=== PATIENT | female | born 1975 | race Caucasian/White ===

== ENCOUNTER 2017-07-01 14:05 | Emergency (ER) | payer SELFPAY ==
[2017-07-01] MEDS ORDERED: NA CHLORIDE 0.9% 1,000 ML ONE (15:45)
[2017-07-01] MEDS ORDERED: ACETAMINOPHEN 500 MG TAB ONE (15:45)
[2017-07-01] MEDS ORDERED: METOCLOPRAMIDE 10 MG/2mL INJ ONE (15:45)
[2017-07-01 15:55] LABS: Absolute Lymphocytes (CBC) 3.3 K/uL (0.7-4.9); Absolute Monocytes 1.3 K/uL (0.1-1.3); Absolute Neutrophil 12.9 K/uL (1.8-8.0); Basophils % 0.7 % (0-1.3); Eosinophils % 0.1 % (0-4.4); Lymphocytes % 18.8 % (15.3-44.8); MCH 32.5 pg (27.0-35.0); MCV 98.3 fL (80-100); MPV 11.2 fL (7.6-11.3); Monocytes % 7.4 % (3.3-12.3); RBC Red Blood Cell Count 4.98 M/uL (3.86-4.86)
[2017-07-01 16:05] LABS: Bicarbonate 30 mEq/L (21-31); Glucose Level 129 mg/dL (65-120); Lipase 20 U/L (22-51); Potassium 3.2 mEq/L (3.6-5.0); Sodium Level 136 mEq/L (135-145)
[2017-07-01 16:11] LABS: ALT/SGPT 31 IU/L (10-60); AST/SGOT 25 IU/L (10-42); Albumin 4.5 g/dL (3.2-5.5); Alkaline Phosphatase 90 IU/L (42-121); BUN Blood Urea Nitrogen 13 mg/dL (6-20); Bilirubin Direct 0.1 mg/dL (0-0.2); Bilirubin Total 0.6 mg/dL (0.3-1.2); Protein, Total 8.5 g/dL (6.0-8.3)
--- NOTE | 2017-07-01 17:37 | ER ---
Nurse's Notes [facility] Name: Pamella Farrar Age: 42 yrs Sex: Female : 1975 Arrival Date: 07/01/2017 Time: 14:09 Bed 24 Private MD: Diagnosis: Acute Gastroenteritis Presentation: 07/01 14:19 Presenting complaint: Patient states: vomiting and back pain that began last night. Pt aa5 states "last time I felt like this my kidneys shut down". Transition of care: patient was not received from another setting of care. Onset of symptoms was June 2017. Initial Sepsis Screen: Does the patient meet any 2 criteria? No. Patient's initial sepsis screen is negative. Does the patient have a suspected source of infection? No. Patient's initial sepsis screen is negative. Care prior to arrival: None. 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 - Social history:: Smoking status: Patient uses tobacco products, smokes one-half pack cigarettes per day. Screenin:15 Abuse screen: Denies threats or abuse. Denies injuries from another. Nutritional kr2 screening: No deficits noted. Tuberculosis screening: No symptoms or risk factors identified. Fall Risk None identified. Assessment: 15:10 General: Appears in no apparent distress. uncomfortable, well groomed, well developed, kr2 well nourished, Behavior is cooperative, anxious. Pain: Complains of pain in epigastric area, right upper quadrant and left upper quadrant Pain does not radiate. Pain currently is 9 out of 10 on a pain scale. Quality of pain is described as sharp, tender, Is continuous, Alleviated by rest, Aggravated by eating. Neuro: Level of Consciousness is awake, alert, obeys commands, Oriented to person, place, time, situation, Appropriate for age. Cardiovascular: Capillary refill < 3 seconds in bilateral fingers Patient's skin is warm and dry. Respiratory: Airway is patent Respiratory effort is even, unlabored, Respiratory pattern is regular, symmetrical. GI: Abdomen is flat, non-distended, Bowel sounds present X 4 quads. Abd is soft X 4 quads Abdomen is tender to palpation in epigastric area, right upper quadrant and left upper quadrant. GI: Reports nausea, vomiting. : No signs and/or symptoms were reported regarding the genitourinary system. Denies burning with urination. EENT: Nares are clear bilaterally Oral mucosa is moist. Derm: Skin is intact, is healthy with good turgor, Skin is pink, warm \\T\\ dry. Musculoskeletal: Circulation, motion, and sensation intact. 16:15 Reassessment: Patient appears in no apparent distress at this time. Patient and/or kr2 family updated on plan of care and expected duration. Pain level reassessed. Patient is alert, oriented x 3, equal unlabored respirations, skin warm/dry/pink. 18:13 Reassessment: Patient appears in no apparent distress at this time. Patient and/or kr2 family updated on plan of care and expected duration. Pain level reassessed. Patient is alert, oriented x 3, equal unlabored respirations, skin warm/dry/pink. Patient states symptoms have improved. Vital Signs: 14:21 BP 169 / 96; Pulse 74; Resp 16 S; Temp 99.2(TE); Pulse Ox 97% on R/A; Height 5 ft. 5 aa5 in. (165.10 cm) (R); Pain 7/10; 15:42 Weight 70.31 kg; Height 5 ft. 5 in. (165.10 cm); Pain 8/10; kr2 16:00 BP 144 / 90; Pulse 70; Resp 16; Pulse Ox 99% on R/A; kr2 17:00 BP 146 / 80; Pulse 75; Resp 16; Pulse Ox 99% on R/A; kr2 18:00 BP 138 / 74; Pulse 70; Resp 16; Pulse Ox 99% on R/A; kr2 15:42 Body Mass Index 25.79 (70.31 kg, 165.10 cm) kr2 ED Course: 14:09 Patient arrived in ED. sb2 14:20 Triage completed. ch 14:20 Arm band placed on. ch 15:08 [facility] jr8 15:08 Yonathan Arteaga MD is Attending Physician. jr8 15:10 Patient has correct armband on for positive identification. Bed in low position. Call kr2 light in reach. Side rails up X2. Adult w/ patient. Pulse ox on. NIBP on. Door closed. Warm blanket given. Head of bed elevated. 15:30 Inserted saline lock: 20 gauge in right antecubital area, using aseptic technique. kr2 Blood collected. 15:32 Shannon Hollis, RN is Primary Nurse. kr2 18:12 No provider procedures requiring assistance completed. IV discontinued, intact, kr2 bleeding controlled, No redness/swelling at site. Pressure dressing applied. Administered Medications: 15:54 Drug: NS 0.9% (20 ml/kg) 20 ml/kg Route: IV; Rate: 1 bolus; Site: right antecubital; kr2 17:30 Follow up: Response: No adverse reaction; IV Status: Completed infusion kr2 15:54 Drug: Reglan 10 mg Route: IVP; Site: right antecubital; kr2 16:17 Follow up: Response: No adverse reaction kr2 16:17 Drug: Tylenol 1000 mg Route: PO; kr2 18:03 Follow up: Response: No adverse reaction kr2 18:03 Follow up: Response: Pain is decreased kr2 Outcome: 17:37 Discharge ordered by . jr8 18:13 Discharged to home ambulatory, with family. kr2 18:13 Condition: good 18:13 Discharge instructions given to patient, family, Instructed on discharge instructions, follow up and referral plans. medication usage, Demonstrated understanding of instructions, follow-up care, medications, Prescriptions given X 1. 18:18 Patient left the ED. kr2 Signatures: Brittney Farr RN RN Anh Moon RN RN aa5 Roshan Elaine PA PA jr8 Shannon Hollis, RN RN kr2 Vicky Munoz2 Corrections: (The following items were deleted from the chart) : 14:19 Presenting complaint: Patient states: vomiting and back pain that began last aa5 night. Pt states "last time I felt like this my kidneys shut down" 14:23 14:19 Transition of care: patient was not received from another setting of care. [facility] 14:23 14:19 Onset of symptoms was June 2017 [facility] 14:23 14:19 Initial Sepsis Screen: Does the patient meet any 2 criteria? No. Patient's aa5 initial sepsis screen is negative. Does the patient have a suspected source of infection? No. Patient's initial sepsis screen is negative. 14:19 Care prior to arrival: None. [facility] 14:19 Method Of Arrival: Ambulatory [facility] 14:19 Acuity: EVER 3 [facility] 14: 14:21 BP 169 / 96; Pulse 74bpm; Resp 16bpm; Spontaneous; Pulse Ox 97% RA; Temp 99.2F aa5 Temporal; Height 5 ft. 5 in. Reported; Pain 7/10; 18:15 16:15 Patient has correct armband on for positive identification. Bed in low position. kr2 Call light in reach. Side rails up X2. Adult w/ patient. kr2 18:15 16:15 Pulse ox on. NIBP on. kr2 kr2 18:15 16:15 Door closed. Warm blanket given. Head of bed elevated. kr2 kr2 18:15 16:15 Inserted saline lock: 20 gauge in right antecubital area, using aseptic kr2 technique. Blood collected. kr2
--- NOTE | 2017-07-01 17:37 | EDPHYS ---
Physician Documentation [facility] Name: Pamella Farrar Age: 42 yrs Sex: Female : 1975 Arrival Date: 07/01/2017 Time: 14:09 Bed 24 Private MD: ED Physician Yonathan Arteaga HPI: 07/01 17:35 This 42 yrs old Female presents to ER via Ambulatory with complaints of jr8 Vomiting. 17:35 The patient presents to the emergency department with nausea, vomiting, diarrhea. jr8 Onset: The symptoms/episode began/occurred acutely, yesterday. Possible causes: unknown. The symptoms are aggravated by food , The symptoms are alleviated by nothing. Associated signs and symptoms: The patient has no apparent associated signs or symptoms. Severity of symptoms: At their worst the symptoms were moderate in the emergency department the symptoms are unchanged. The patient has not experienced similar symptoms in the past. The patient has not recently seen a physician. 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 - Social history:: Smoking status: Patient uses tobacco products, smokes one-half pack cigarettes per day. ROS: 17:35 Eyes: Negative for injury, pain, redness, and discharge, ENT: Negative for injury, jr8 pain, and discharge, Neck: Negative for injury, pain, and swelling, Cardiovascular: Negative for chest pain, palpitations, and edema, Respiratory: Negative for shortness of breath, cough, wheezing, and pleuritic chest pain, Back: Negative for injury and pain, MS/Extremity: Negative for injury and deformity, Skin: Negative for injury, rash, and discoloration, Neuro: Negative for headache, weakness, numbness, tingling, and seizure. 17:35 Abdomen/GI: Positive for nausea, vomiting, and diarrhea, Negative for abdominal pain, abdominal distension, anorexia, dysphagia, hematemesis, black/tarry stool, rectal pain, rectal bleeding, bowel incontinence, flatulence. Exam: 17:35 Eyes: Pupils equal round and reactive to light, extra-ocular motions intact. Lids and jr8 lashes normal. Conjunctiva and sclera are non-icteric and not injected. Cornea within normal limits. Periorbital areas with no swelling, redness, or edema. ENT: Nares patent. No nasal discharge, no septal abnormalities noted. Tympanic membranes are normal and external auditory canals are clear. Oropharynx with no redness, swelling, or masses, exudates, or evidence of obstruction, uvula midline. Mucous membranes moist. Neck: Trachea midline, no thyromegaly or masses palpated, and no cervical lymphadenopathy. Supple, full range of motion without nuchal rigidity, or vertebral point tenderness. No Meningismus. Cardiovascular: Regular rate and rhythm with a normal S1 and S2. No gallops, murmurs, or rubs. Normal PMI, no JVD. No pulse deficits. Respiratory: Lungs have equal breath sounds bilaterally, clear to auscultation and percussion. No rales, rhonchi or wheezes noted. No increased work of breathing, no retractions or nasal flaring. Abdomen/GI: Soft, non-tender, with normal bowel sounds. No distension or tympany. No guarding or rebound. No evidence of tenderness throughout. Back: No spinal tenderness. No costovertebral tenderness. Full range of motion. Skin: Warm, dry with normal turgor. Normal color with no rashes, no lesions, and no evidence of cellulitis. MS/ Extremity: Pulses equal, no cyanosis. Neurovascular intact. Full, normal range of motion. Neuro: Awake and alert, GCS 15, oriented to person, place, time, and situation. Cranial nerves II-XII grossly intact. Motor strength 5/5 in all extremities. Sensory grossly intact. Cerebellar exam normal. Normal gait. Vital Signs: 14:21 BP 169 / 96; Pulse 74; Resp 16 S; Temp 99.2(TE); Pulse Ox 97% on R/A; Height 5 ft. 5 aa5 in. (165.10 cm) (R); Pain 7/10; 15:42 Weight 70.31 kg; Height 5 ft. 5 in. (165.10 cm); Pain 8/10; kr2 16:00 BP 144 / 90; Pulse 70; Resp 16; Pulse Ox 99% on R/A; kr2 17:00 BP 146 / 80; Pulse 75; Resp 16; Pulse Ox 99% on R/A; kr2 18:00 BP 138 / 74; Pulse 70; Resp 16; Pulse Ox 99% on R/A; kr2 15:42 Body Mass Index 25.79 (70.31 kg, 165.10 cm) kr2 MDM: 15:08 Patient medically screened. jr8 17:35 Data reviewed: vital signs, nurses notes, lab test result(s), and as a result, I will jr8 discharge patient. Data interpreted: Pulse oximetry: on room air is 97 %. Interpretation: normal. Counseling: I had a detailed discussion with the patient and/or guardian regarding: the historical points, exam findings, and any diagnostic results supporting the discharge/admit diagnosis, lab results, the need for outpatient follow up, a family practitioner, to return to the emergency department if symptoms worsen or persist or if there are any questions or concerns that arise at home. Response to treatment: the patient's symptoms have markedly improved after treatment, patient is well hydrated. Special discussion: Based on the patient's Hx, exam, and Dx evaluation, there is no indication for emergent surgery or inpatient Tx. It is understood by the patient/guardian that if the Sx's persist or worsen they need to return immediately for re-evaluation. ED course: Patient still without abdominal pain upon reexamination. Will send home with nausea medicine. To follow up with PCP. If worse to come back . 07/01 15:15 Order name: Basic Metabolic Panel; Complete Time: 16:07/01 15:15 Order name: CBC with Diff; Complete Time: 16:07/01 15:15 Order name: Creatinine for Radiology; Complete Time: 16:07/01 15:15 Order name: Hepatic Function; Complete Time: 16:33 07/01 15:15 Order name: Lipase; Complete Time: 16:33 07/01 15:31 Order name: Flu; Complete Time: 17:06 07/01 15:15 Order name: IV Saline Lock; Complete Time: 15:41 07/01 15:15 Order name: Labs collected and sent; Complete Time: 15:41 jr Administered Medications: 15:54 Drug: NS 0.9% (20 ml/kg) 20 ml/kg Route: IV; Rate: 1 bolus; Site: right antecubital; kr2 17:30 Follow up: Response: No adverse reaction; IV Status: Completed infusion kr2 15:54 Drug: Reglan 10 mg Route: IVP; Site: right antecubital; kr2 16:17 Follow up: Response: No adverse reaction kr2 16:17 Drug: Tylenol 1000 mg Route: PO; kr2 18:03 Follow up: Response: No adverse reaction kr2 18:03 Follow up: Response: Pain is decreased kr2 Disposition: 22:34 Co-signature as Attending Physician, Yonathan Arteaga MD I agree with the assessment and kdr plan of care. Disposition: 07/01/17 17:37 Discharged to Home. Impression: Acute Gastroenteritis. - Condition is Stable. - Discharge Instructions: Dehydration, Adult, Viral Gastroenteritis. - Prescriptions for Reglan 10 mg Oral Tablet - take 1 tablet by ORAL route every 6 hours . take 30 minutes before meals and at bedtime; 20 tablet. - Medication Reconciliation Form, Thank You Letter, Antibiotic Education, Prescription Opioid Use form. - Follow up: Private Physician; When: 1 - 2 days; Reason: Recheck today's complaints, Continuance of care, Re-evaluation by your physician. - Problem is new. - Symptoms have improved. Signatures: Dispatcher [employer] EDBrittney Salinas RN RN Yonathan Arteaga MD MD [facility] Roshan Elaine PA PA jr8 Shannon Hollis RN RN kr2 Corrections: (The following items were deleted from the chart) 18:16 15:15 Urine Dipstick-Ancillary ordered. jr8 kr2 18:18 17:37 07/01/2017 17:37 Discharged to Home. Impression: Acute Gastroenteritis. Condition kr2 is Stable. Forms are Medication Reconciliation Form, Thank You Letter, Antibiotic Education, Prescription Opioid Use. Follow up: Private Physician; When: 1 - 2 days; Reason: Recheck today's complaints, Continuance of care, Re-evaluation by your physician. Problem is new. Symptoms have improved. jr8
[2017-07-01 18:31] VITALS: TEMP 99.2
[2017-07-01 18:33] VITALS: O2SAT 99
[2017-07-01 18:36] VITALS: BP 138/74
== END 2017-07-01 18:18 | disposition home or self-care (01) ==
LOC: ER 14:05
DX: K52.9 Noninfective gastroenteritis and colitis, unspecified (principal); I10 Essential (primary) hypertension; F17.210 Nicotine dependence, cigarettes, uncomplicated
CPT/HCPCS: 36415; 80048; 80076; 83690; 85025; 87804; 96361; 96374; 99284; J2765; J7030

== ENCOUNTER 2017-08-25 07:40 | Emergency (ER) | payer SELFPAY ==
[2017-08-25] MEDS ORDERED: MORPHINE 4 MG/ML SYR ONE (08:28)
[2017-08-25] MEDS ORDERED: NA CHLORIDE 0.9% 1,000 ML ONE (08:28)
[2017-08-25] MEDS ORDERED: DIPHENHYDRAMINE 50 MG/ML VIAL ONE (08:28)
[2017-08-25] MEDS ORDERED: METOCLOPRAMIDE 10 MG/2mL INJ ONE (08:28)
[2017-08-25 08:59] LABS: Absolute Lymphocytes (CBC) 2.1 K/uL (0.7-4.9); Absolute Monocytes 0.6 K/uL (0.1-1.3); Absolute Neutrophil 9.4 K/uL (1.8-8.0); Basophils % 0.3 % (0-1.3); Eosinophils % 0.2 % (0-4.4); Hematocrit 43.5 % (36.0-45.0); Lymphocytes % 17.2 % (15.3-44.8); MCH 32.4 pg (27.0-35.0); MCV 95.5 fL (80-100); MPV 11.8 fL (7.6-11.3); Monocytes % 5.1 % (3.3-12.3); RBC Red Blood Cell Count 4.55 M/uL (3.86-4.86)
[2017-08-25 09:11] LABS: Urine Bacteria <20 /HPF (<20); Urine Culture Reflex Order NOT NEEDED; Urine RBC <5 /HPF (NONE SEEN)
[2017-08-25 09:12] LABS: Urine Blood TRACE (NEG); Urine Glucose NEGATIVE (NEG); Urine Protein 1+ (NEG); Urine Specific Gravity >1.030 (1.005-1.030)
[2017-08-25 09:20] LABS: ALT/SGPT 30 U/L (12-78); AST/SGOT 24 U/L (15-37); Albumin 4.5 g/dL (3.4-5.0); Alkaline Phosphatase 103 U/L (45-117); Amylase Level 38 U/L (25-115); BUN Blood Urea Nitrogen 9 mg/dL (7-18); Bicarbonate 26 mmol/L (21-32); Bilirubin Direct 0.2 mg/dL (0-0.2); Bilirubin Total 0.8 mg/dL (0.2-1.0); Glucose Level 130 mg/dL (74-106); Lipase 96 U/L (73-393); Potassium 3.7 mmol/L (3.5-5.1); Protein, Total 9.2 g/dL (6.4-8.2); Sodium Level 132 mmol/L (136-145)
--- NOTE | 2017-08-25 10:11 | RAD REPORT ---
EXAM DESCRIPTION: CT - Abdomen Pelvis W Contrast - 08/25/2017 9:55 am CLINICAL HISTORY: Abdominal pain/vomiting. COMPARISON: none. TECHNIQUE: Computed axial tomography of the abdomen pelvis was obtained. 100 cc Isovue-300 was admin istered intravenously. Oral contrast was not requested which limits evaluation of bowel. All CT scans are performed using dose optimization technique as appropriate and may include automated exposure control or mA/KV adjustment according to patient size. FINDINGS: The gallbladder has been removed. Mild prominence of the biliary tree is present. The liver, spleen, pancreas, adrenal and kidneys appear unremarkable. There is no evidence of diverticulitis. The appendix is normal. IMPRESSION: Mild dilatation of the biliary tree. Most likely this is physiologic in this patient sta tus post cholecystectomy. However, this should be correlated clinically and with appropriate lab valu es.
--- NOTE | 2017-08-25 11:03 | EDPHYS ---
Physician Documentation [facility] Name: Pamella Farrar Age: 42 yrs Sex: Female : 1975 Arrival Date: 08/25/2017 Time: 07:45 Bed 16 Private MD: None, None ED Physician David Knapp HPI: 08/25 07:55 This 42 yrs old Female presents to ER via Ambulatory with complaints of jmm Fever, Vomiting. 07:55 The patient presents to the emergency department with nausea, vomiting, abdominal pain, jmm of the right upper quadrant and left upper quadrant. Onset: The symptoms/episode began/occurred gradually, 2 day(s) ago. Possible causes: sick contacts, by a significant other, . Associated signs and symptoms: Pertinent positives: fever. This is a 42 year old female with a history of asthma, DM, that presents to the ED with 2 week of sinus congestion with fever beginning 2 days ago along with abdominal pain and multiple episodes of vomiting. The frequency increased this past evening. Patient states her gallbladder has been removed. The states he had similar symptoms. . Historical: - Allergies: 08:08 meperidine HCl; jl7 - Home Meds: 08:08 lisinopril 20 mg Oral tab 1 tab once daily [Active]; Metformin Oral [Active]; jl7 - PMHx: 08:08 Asthma; Hypertension; Diabetes - NIDDM; jl7 - PSHx: 08:08 Cholecystectomy; Tubal ligation; Small Bowel resection; jl7 - Immunization history:: Adult Immunizations up to date. - Ebola Screening: : No symptoms or risks identified at this time. - Social history:: Smoking status: unknown. ROS: 07:55 Constitutional: Positive for body aches, chills, fever. jmm 07:55 Cardiovascular: Negative for chest pain. 07:55 Respiratory: Negative for shortness of breath. 07:55 Abdomen/GI: Positive for abdominal pain, nausea and vomiting. 07:55 Neuro: Negative for weakness. 07:55 All other systems are negative. Exam: 07:55 Head/Face: atraumatic. jmm 07:55 Cardiovascular: Regular rate and rhythm. No gallops, murmurs, or rubs. Full/Equal distal pulses. Respiratory: Lungs have equal breath sounds bilaterally, clear to auscultation. 07:55 Constitutional: The patient appears in no acute distress, alert, awake, uncomfortable. 07:55 Abdomen/GI: Inspection: abdomen appears normal, Bowel sounds: normal, Palpation: soft, mild abdominal tenderness, in the right upper quadrant and left upper quadrant. 07:55 Back: ROM is normal. 07:55 Musculoskeletal/extremity: ROM: intact in all extremities. 07:55 Skin: Appearance: Color: normal in color. 07:55 Neuro: Orientation: is normal, Mentation: is normal, Memory: is normal, Gait: is steady. 07:55 Psych: Behavior/mood is pleasant, cooperative. 07:55 Head/face: Sinus tenderness, that is moderate, is located over the right ethmoid jmm sinus, left ethmoid sinus and right maxillary sinus. Vital Signs: 08:08 BP 150 / 99; Pulse 78; Resp 16 S; Temp 98.1(O); Pulse Ox 95% on R/A; Weight 70.31 kg jl7 (R); Height 5 ft. 4 in. (162.56 cm) (R); Pain 4/10; 10:00 BP 121 / 88; Pulse 73; Resp 16; Pulse Ox 97% ; Pain 0/10; jl7 11:24 BP 120 / 85; Pulse 75; Resp 16; Pulse Ox 97% ; jl7 08:08 Body Mass Index 26.61 (70.31 kg, 162.56 cm) jl7 MDM: 07:57 Patient medically screened. shin 10:59 Data reviewed: vital signs, nurses notes, lab test result(s), radiologic studies, CT jmm scan. Counseling: I had a detailed discussion with the patient and/or guardian regarding: the historical points, exam findings, and any diagnostic results supporting the discharge/admit diagnosis, the presence of at least one elevated blood pressure reading (>120/80) during this emergency department visit, lab results, radiology results, the need for outpatient follow up, to return to the emergency department if symptoms worsen or persist or if there are any questions or concerns that arise at home. Response to treatment: the patient's symptoms have resolved after treatment. ED course: Patient's imaging studies reveal no acute intraabdominal process. Due to patient's symptoms of sinus congestion for over 10 days, the patient will be administered an antibiotic for sinusitis. Patient is advised to return to the ED if she is unable to tolerate fluids at home, if she develops worsening abdominal pain or if she has any other concerning symptoms. Patient understood and agrees with the plan of care. . 08/25 08:08 Order name: Amylase, Serum; Complete Time: 09:23 [facility] 08/25 08:08 Order name: Basic Metabolic Panel; Complete Time: 09:23 [facility] 08/25 08:08 Order name: CBC with Diff; Complete Time: 09:14 [facility] 08/25 08:08 Order name: Creatinine for Radiology; Complete Time: 09:23 [facility] 08/25 08:08 Order name: Hepatic Function; Complete Time: 09:23 [facility] 08/25 08:08 Order name: Lipase; Complete Time: 09:23 [facility] 08/25 08:08 Order name: Urine Microscopic Only; Complete Time: 09:14 [facility] 08/25 08:08 Order name: CT Abd/Pelvis - W/Contrast; Complete Time: 10:23 [facility] 08/25 08:36 Order name: Urine Dipstick--Ancillary (enter results); Complete Time: 09:14 [facility] 08/25 08:36 Order name: Urine --Ancillary (enter results); Complete Time: 09:14 ag 08/25 08:08 Order name: Urine Test (obtain specimen); Complete Time: 08:54 [facility] 08/25 08:08 Order name: IV Saline Lock; Complete Time: 08:54 [facility] 08/25 08:08 Order name: Labs collected and sent; Complete Time: 08:54 [facility] 08/25 08:08 Order name: Urine Dipstick-Ancillary (obtain specimen); Complete Time: 08:51 jmm Administered Medications: 08:45 Drug: NS 0.9% 1000 ml Route: IV; Rate: 1 bolus; Site: left antecubital; jl7 09:40 Follow up: Response: No adverse reaction; IV Status: Completed infusion; IV Intake: jl7 1000ml 08:46 Drug: diphenhydrAMINE 12.5 mg Route: IVP; Site: left antecubital; jl7 09:15 Follow up: Response: No adverse reaction; Pain is decreased jl7 08:47 Drug: morphine 4 mg Route: IVP; Site: left antecubital; jl7 09:15 Follow up: Response: No adverse reaction; Pain is decreased jl7 08:49 Drug: Reglan 10 mg Route: IVP; Site: left antecubital; jl7 09:15 Follow up: Response: No adverse reaction; Pain is decreased jl7 Disposition: 15:00 Co-signature as Attending Physician, David Knapp MD I agree with the assessment and shin plan of care. Disposition: 08/25/17 11:02 Discharged to Home. Impression: Vomiting, Acute ethmoidal sinusitis. - Condition is Stable. - Discharge Instructions: Nausea and Vomiting. - Prescriptions for Augmentin 875- 125 mg Oral Tablet - take 1 tablet by ORAL route every 12 hours for 10 days; 20 tablet. Reglan 10 mg Oral Tablet - take 1 tablet by ORAL route every 6 hours . take 30 minutes before meals and at bedtime; 30 tablet. Albuterol Sulfate 2.5 mg /3 mL (0.083 %) Inhalation Solution for Nebulization - inhale 1 unit by NEBULIZATION route every 8 hours As needed; 1 box. Albuterol Sulfate 90 mcg/actuation - inhale 1-2 puff by INHALATION route every 4-6 hours; 1 Inhaler. - Medication Reconciliation Form, Thank You Letter, Antibiotic Education, Prescription Opioid Use form. - Follow up: Private Physician; When: 2 - 3 days; Reason: Continuance of care. Signatures: Dispatcher [employer] EDDavid Parish MD MD cha Mickail, Joel, PA PA jmm Leal, Jahala, RN RN jl7 Corrections: (The following items were deleted from the chart) 11:26 11:02 08/25/2017 11:02 Discharged to Home. Impression: Vomiting; Acute ethmoidal jl7 sinusitis. Condition is Stable. Forms are Medication Reconciliation Form, Thank You Letter, Antibiotic Education, Prescription Opioid Use. Follow up: Private Physician; When: 2 - 3 days; Reason: Continuance of care. manuel
--- NOTE | 2017-08-25 11:03 | ER ---
Nurse's Notes [facility] Name: Pamella Farrar Age: 42 yrs Sex: Female : 1975 Arrival Date: 08/25/2017 Time: 07:45 Bed 16 Private MD: None, None Diagnosis: Vomiting;Acute ethmoidal sinusitis Presentation: 08/25 08:04 Presenting complaint: Patient states: Been feeling bad for about a month, coughing up jl7 yucky green stuff. Started vomiting yesterday and all night long. Transition of care: patient was not received from another setting of care. Onset of symptoms was August 24, 2017. Risk Assessment: Do you want to hurt yourself or someone else? Patient reports no desire to harm self or others. Initial Sepsis Screen: Does the patient meet any 2 criteria? No. Patient's initial sepsis screen is negative. Does the patient have a suspected source of infection? No. Patient's initial sepsis screen is negative. Care prior to arrival: None. 08:04 Method Of Arrival: Ambulatory [facility] 08:04 Acuity: EVER 3 jl7 Triage Assessment: 08:15 General: Appears uncomfortable, Behavior is cooperative. Pain: Complains of pain in jl7 abdomen diffusely Pain does not radiate. Pain currently is 4 out of 10 on a pain scale. at worst was 10 out of 10 on a pain scale. Quality of pain is described as aching, crampy, Pain began 1 day ago. Is intermittent. EENT: No signs and/or symptoms were reported regarding the EENT system. Neuro: Level of Consciousness is awake, alert, obeys commands, Oriented to person, place, time, situation. Cardiovascular: Patient's skin is warm and dry. Respiratory: Airway is patent Respiratory effort is even, unlabored, Respiratory pattern is regular, symmetrical. GI: Abdomen is round non-distended, Bowel sounds present X 4 quads. Reports nausea, vomiting, Patient currently denies diarrhea. : No signs and/or symptoms were reported regarding the genitourinary system. Derm: Skin is pink, warm \T\ dry. Historical: - Allergies: 08:08 meperidine HCl; jl7 - Home Meds: 08:08 lisinopril 20 mg Oral tab 1 tab once daily [Active]; Metformin Oral [Active]; jl7 - PMHx: 08:08 Asthma; Hypertension; Diabetes - NIDDM; jl7 - PSHx: 08:08 Cholecystectomy; Tubal ligation; Small Bowel resection; jl7 - Immunization history:: Adult Immunizations up to date. - Ebola Screening: : No symptoms or risks identified at this time. - Social history:: Smoking status: unknown. Screenin:00 Abuse screen: Denies threats or abuse. Denies injuries from another. Nutritional jl7 screening: No deficits noted. Tuberculosis screening: No symptoms or risk factors identified. Fall Risk IV access (20 points). Total Kim Fall Scale indicates No Risk (0-24 pts). Assessment: 08:15 General: See triage assessment. jl7 09:15 Reassessment: Patient and/or family updated on plan of care and expected duration. Pain jl7 level reassessed. Patient is alert, oriented x 3, equal unlabored respirations, skin warm/dry/pink. Patient states feeling better. Pain: Denies pain. GI: Patient currently denies nausea. 09:15 GI: Abdomen is round non-distended, Bowel sounds present X 4 quads. Patient currently jl7 denies nausea, pain. 10:15 Reassessment: No changes from previously documented assessment. Patient and/or family jl7 updated on plan of care and expected duration. Pain level reassessed. Patient is alert, oriented x 3, equal unlabored respirations, skin warm/dry/pink. 11:00 Reassessment: No changes from previously documented assessment. Patient and/or family jl7 updated on plan of care and expected duration. Pain level reassessed. Patient is alert, oriented x 3, equal unlabored respirations, skin warm/dry/pink. Vital Signs: 08:08 BP 150 / 99; Pulse 78; Resp 16 S; Temp 98.1(O); Pulse Ox 95% on R/A; Weight 70.31 kg jl7 (R); Height 5 ft. 4 in. (162.56 cm) (R); Pain 4/10; 10:00 BP 121 / 88; Pulse 73; Resp 16; Pulse Ox 97% ; Pain 0/10; jl7 11:24 BP 120 / 85; Pulse 75; Resp 16; Pulse Ox 97% ; jl7 08:08 Body Mass Index 26.61 (70.31 kg, 162.56 cm) 7 ED Course: 07:45 Patient arrived in ED. mr 07:45 None, None is Private Physician. mr 07:55 [facility]eros [facility] 07:55 David Knapp MD is Attending Physician. [facility] 08:04 Ryann Mukherjee, RN is Primary Nurse. jl7 08:05 Triage completed. jl7 08:08 Arm band placed on right wrist. jl7 08:30 Initial lab(s) drawn, by me, sent to lab. Inserted saline lock: 20 gauge in right jl7 antecubital area, using aseptic technique. Blood collected. 08:50 Patient has correct armband on for positive identification. Placed in gown. Bed in low mh5 position. Call light in reach. Side rails up X 1. Adult w/ patient. Warm blanket given. Pillow given. Pulse ox on. NIBP on. 08:50 Urine collected: clean catch specimen, anna colored. mh5 08:51 Urine --Ancillary (enter results) Sent. mh5 08:51 Urine Dipstick--Ancillary (enter results) Sent. mh5 08:51 Urine Microscopic Only Sent. mh5 09:55 CT Abd/Pelvis - W/Contrast In Process Unspecified. EDMS 11:24 No provider procedures requiring assistance completed. IV discontinued, intact, jl7 bleeding controlled, No redness/swelling at site. Pressure dressing applied. Administered Medications: 08:45 Drug: NS 0.9% 1000 ml Route: IV; Rate: 1 bolus; Site: left antecubital; jl7 09:40 Follow up: Response: No adverse reaction; IV Status: Completed infusion; IV Intake: jl7 1000ml 08:46 Drug: diphenhydrAMINE 12.5 mg Route: IVP; Site: left antecubital; jl7 09:15 Follow up: Response: No adverse reaction; Pain is decreased jl7 08:47 Drug: morphine 4 mg Route: IVP; Site: left antecubital; jl7 09:15 Follow up: Response: No adverse reaction; Pain is decreased jl7 08:49 Drug: Reglan 10 mg Route: IVP; Site: left antecubital; jl7 09:15 Follow up: Response: No adverse reaction; Pain is decreased jl7 Intake: 09:40 IV: 1000ml; Total: 1000ml. jl7 Outcome: 11:02 Discharge ordered by MD. jackson 11:24 Discharged to home ambulatory. jl7 11:24 Condition: stable 11:24 Discharge instructions given to patient, Instructed on discharge instructions, follow up and referral plans. medication usage, Demonstrated understanding of instructions, follow-up care, medications, Prescriptions given X 4. 11:26 Patient left the ED. jl7 Signatures: Dispatcher [employer] EDMS Mau Mederos PA PA jmm Rivera, Maria mr [place], [place] [id number] Ryann Mukherjee RN RN jl7
[2017-08-25 11:31] VITALS: TEMP 98.1
[2017-08-25 11:32] VITALS: O2SAT 97
[2017-08-25 11:33] VITALS: BP 120/85
== END 2017-08-25 11:26 | disposition home or self-care (01) ==
LOC: ER 07:40
DX: J01.20 Acute ethmoidal sinusitis, unspecified (principal); I10 Essential (primary) hypertension; E11.9 Type 2 diabetes mellitus without complications
CPT/HCPCS: 36415; 74177; 80048; 80076; 81003; 81015; 81025; 82150; 83690; 85025; 96361; 96374; 96375; 99284; J2765; J7030; Q9967

== ENCOUNTER 2018-08-30 10:23 | Emergency (ER) | payer SELFPAY ==
[2018-08-30 11:51] LABS: Absolute Lymphocytes (CBC) 3.2 K/uL (0.7-4.9); Basophils % 0.5 % (0-1.3); Eosinophils % 3.2 % (0-4.4); Hematocrit 34.9 % (36.0-45.0); Lymphocytes % 27.2 % (15.3-44.8); MPV 11.6 fL (7.6-11.3); Monocytes % 7.7 % (3.3-12.3); RBC Red Blood Cell Count 3.62 M/uL (3.86-4.86)
[2018-08-30] MEDS ORDERED: HYDROCODONE/APAP 10/325 TAB ONE (11:51)
[2018-08-30 11:53] LABS: Urine Bacteria <20 /HPF (<20); Urine Culture Reflex Order NOT NEEDED
[2018-08-30 12:03] LABS: Urine Blood TRACE (NEG); Urine Glucose NEGATIVE (NEG); Urine Protein 1+ (NEG)
[2018-08-30 12:06] LABS: Potassium 4.2 mmol/L (3.5-5.1)
--- NOTE | 2018-08-30 12:07 | RAD REPORT ---
EXAM DESCRIPTION: CT - Abdomen Pelvis Wo Contrast - 08/30/2018 11:49 am CLINICAL HISTORY: Abdominal pain COMPARISON: August 2017 TECHNIQUE: Computed axial tomography of the abdomen and pelvis was obtained. IV and oral contrast we re not requested. All CT scans are performed using dose optimization technique as appropriate and may include automated exposure control or mA/KV adjustment according to patient size. FINDINGS: The evaluation of solid organs, vessels and bowel is limited secondary to the lack of con trast administration. The liver, spleen, pancreas, adrenals and kidneys appear grossly normal. Cholecystectomy. The appendix is normal. There is no evidence of diverticulitis. Hysterectomy. Postsurgical changes involve the small bowel IMPRESSION: No acute abnormality is displayed.
--- NOTE | 2018-08-30 12:19 | ER ---
Nurse's Notes [facility] Name: Pamella Farrar Age: 43 yrs Sex: Female : 1975 Arrival Date: 08/30/2018 Time: 10:25 Bed 16 Private MD: Diagnosis: Postprocedural hemorrhage and hematoma of a genitourinary system organ or structure following a genitourinary system procedure;Other acute postprocedural pain Presentation: 08/30 10:34 Presenting complaint: Patient states: "[place] hysterectomy aa5 on August 25 and today I was coughing and I just started bleeding more". Pt reports heavy vaginal bleeding began 1 hr ago, reports using 2 pads so far. Transition of care: patient was not received from another setting of care. Onset of symptoms was August 30, 2018. Risk Assessment: Do you want to hurt yourself or someone else? Patient reports no desire to harm self or others. Initial Sepsis Screen: Does the patient meet any 2 criteria? No. Patient's initial sepsis screen is negative. Does the patient have a suspected source of infection? No. Patient's initial sepsis screen is negative. Care prior to arrival: None. 10:34 Method Of Arrival: Wheelchair aa5 10:34 Acuity: EVER 3 aa5 Triage Assessment: 10:43 General: Appears in no apparent distress. comfortable, Behavior is cooperative, bp appropriate for age, anxious. Pain: Complains of pain in pelvis. EENT: No deficits noted. Neuro: No deficits noted. Cardiovascular: No deficits noted. Respiratory: Airway is patent Respiratory effort is even, unlabored, Respiratory pattern is regular, symmetrical. GI: No signs and/or symptoms were reported involving the gastrointestinal system. : Reports vaginal bleeding that is bright red, with clots. Derm: No deficits noted. Musculoskeletal: No deficits noted. 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 - Social history:: Smoking status: Patient uses tobacco products, smokes one-half pack cigarettes per day. - Ebola Screening: : No symptoms or risks identified at this time. Screenin:46 Abuse screen: Denies threats or abuse. Denies injuries from another. Nutritional bp screening: No deficits noted. Tuberculosis screening: No symptoms or risk factors identified. Fall Risk None identified. Assessment: 10:46 General: SEE TRIAGE NOTE. bp 11:44 Reassessment: ALL CURRENT ORDERS COMPLETED, RESULTS PENDING. bp 12:41 Reassessment: PT D/C HOME AMBULATORY WITH FAMILY, DX WITH POST-SURGICAL BLEEDING. bp Vital Signs: 10:36 BP 143 / 78; Pulse 95; Resp 16 S; Temp 97.8(TE); Pulse Ox 98% on R/A; Weight 66.22 kg aa5 (R); Height 5 ft. 4 in. (162.56 cm) (R); Pain 7/10; 11:56 BP 141 / 93; Pulse 74; Resp 16; Temp 98.2(O); Pulse Ox 100% on R/A; mh5 12:23 BP 149 / 94; Pulse 80; Resp 16; Temp 98; Pulse Ox 98% ; bp 10:36 Body Mass Index 25.06 (66.22 kg, 162.56 cm) aa5 ED Course: 10:25 Patient arrived in ED. rg4 10:34 Arm band placed on. aa5 10:35 Triage completed. aa5 10:37 Rian Milan MD is Attending Physician. gs 10:39 Suhail Yip, RN is Primary Nurse. bp 10:46 Patient has correct armband on for positive identification. Bed in low position. Call bp light in reach. Side rails up X2. Adult w/ patient. 11:30 Inserted saline lock: 20 gauge in left forearm, using aseptic technique. Blood bp collected. 11:30 Assist provider with pelvic exam: Set up pelvic tray. Performed by Rian thompson Patient tolerated well. 11:38 Basic Metabolic Panel Sent. aj 11:52 CT Abd/Pelvis - Without Contrast In Process Unspecified. EDMS 12:16 Jorge Gross MD is Referral Physician. gs 12:42 IV discontinued, intact, bleeding controlled, No redness/swelling at site. Pressure bp dressing applied. Administered Medications: 11:38 Drug: [place] 10 mg-325 mg 1 tabs Route: PO; jay 12:43 Follow up: Response: Pain is decreased bp Outcome: 12:18 Discharge ordered by . mitchell 12:42 Discharged to home ambulatory, with family. bp 12:42 Condition: stable 12:42 Discharge instructions given to patient, Instructed on discharge instructions, follow up and referral plans. medication usage, Demonstrated understanding of instructions, follow-up care, medications, Prescriptions given X 1. 12:44 Patient left the ED. bp Signatures: Dispatcher [employer] EDMitzy Kirby RN RN Anh Paulino RN RN Lyla Gramajo [facility] Rian Milan MD MD gs Peltier, Brian RN RN bp Corrections: (The following items were deleted from the chart) 10:40 10:34 Presenting complaint: Patient states: "[place] and I had a aa5 hysterectomy on August 25 and today I was coughing and I just started bleeding more". Pt reports heavy vaginal bleeding began 1 hr ago. aa5
--- NOTE | 2018-08-30 12:19 | EDPHYS ---
Physician Documentation [facility] Name: Pamella Farrar Age: 43 yrs Sex: Female : 1975 Arrival Date: 08/30/2018 Time: 10:25 Bed 16 Private MD: ED Physician Rian Milan HPI: 08/30 14:37 This 43 yrs old Female presents to ER via Wheelchair with complaints of Post gs Surgical Bleeding, Vaginal Bleeding. 14:37 Onset: The symptoms/episode began/occurred this morning, after coughing fit had vaghyst gs 5 days ago. Associated signs and symptoms: Pertinent positives: cramping, vaginal bleeding, Pertinent negatives: fever, urinary frequency. Severity of symptoms: At their worst the symptoms were moderate, in the emergency department the symptoms have improved, markedly. The patient has not experienced similar symptoms in the past. 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 - Social history:: Smoking status: Patient uses tobacco products, smokes one-half pack cigarettes per day. - Ebola Screening: : No symptoms or risks identified at this time. ROS: 14:37 All other systems are negative. gs Exam: 14:37 Head/Face: Normocephalic, atraumatic. Eyes: Pupils equal round and reactive to light, gs extra-ocular motions intact. Lids and lashes normal. Conjunctiva and sclera are non-icteric and not injected. Cornea within normal limits. Periorbital areas with no swelling, redness, or edema. ENT: Nares patent. No nasal discharge, no septal abnormalities noted. Tympanic membranes are normal and external auditory canals are clear. Oropharynx with no redness, swelling, or masses, exudates, or evidence of obstruction, uvula midline. Mucous membranes moist. Neck: Trachea midline, no thyromegaly or masses palpated, and no cervical lymphadenopathy. Supple, full range of motion without nuchal rigidity, or vertebral point tenderness. No Meningismus. Chest/axilla: Normal chest wall appearance and motion. Nontender with no deformity. No lesions are appreciated. Cardiovascular: Regular rate and rhythm with a normal S1 and S2. No gallops, murmurs, or rubs. Normal PMI, no JVD. No pulse deficits. Respiratory: Lungs have equal breath sounds bilaterally, clear to auscultation and percussion. No rales, rhonchi or wheezes noted. No increased work of breathing, no retractions or nasal flaring. Abdomen/GI: Soft, non-tender, with normal bowel sounds. No distension or tympany. No guarding or rebound. No evidence of tenderness throughout. Back: No spinal tenderness. No costovertebral tenderness. Full range of motion. Skin: Warm, dry with normal turgor. Normal color with no rashes, no lesions, and no evidence of cellulitis. MS/ Extremity: Pulses equal, no cyanosis. Neurovascular intact. Full, normal range of motion. Neuro: Awake and alert, GCS 15, oriented to person, place, time, and situation. Cranial nerves II-XII grossly intact. Motor strength 5/5 in all extremities. Sensory grossly intact. Cerebellar exam normal. Normal gait. 14:37 Constitutional: The patient appears alert, awake. 14:37 : Pelvic Exam: bimanual exam reveals mild discomfort sutures intact, no bleeding, the nurse was present for the exam. Vital Signs: 10:36 BP 143 / 78; Pulse 95; Resp 16 S; Temp 97.8(TE); Pulse Ox 98% on R/A; Weight 66.22 kg aa5 (R); Height 5 ft. 4 in. (162.56 cm) (R); Pain 7/10; 11:56 BP 141 / 93; Pulse 74; Resp 16; Temp 98.2(O); Pulse Ox 100% on R/A; mh5 12:23 BP 149 / 94; Pulse 80; Resp 16; Temp 98; Pulse Ox 98% ; bp 10:36 Body Mass Index 25.06 (66.22 kg, 162.56 cm) aa5 MDM: 10:56 Patient medically screened. 14:37 Data reviewed: vital signs, nurses notes. Counseling: I had a detailed discussion with gs the patient and/or guardian regarding: the historical points, exam findings, and any diagnostic results supporting the discharge/admit diagnosis, the need for outpatient follow up. Response to treatment: the patient's symptoms have resolved after treatment, the patient's condition has returned to base line. 08/30 10:50 Order name: CBC with Diff; Complete Time: 12:15 08/30 10:50 Order name: Urine Microscopic Only; Complete Time: 12:15 08/30 10:50 Order name: Basic Metabolic Panel; Complete Time: 12:15 08/30 11:35 Order name: CT Abd/Pelvis - Without Contrast; Complete Time: 12:15 08/30 11:35 Order name: Urine Dipstick--Ancillary (enter results); Complete Time: 12:15 em1 08/30 10:50 Order name: Urine Dipstick-Ancillary (obtain specimen); Complete Time: 11:34 Administered Medications: 11:38 Drug: [place] 10 mg-325 mg 1 tabs Route: PO; aj 12:43 Follow up: Response: Pain is decreased bp Disposition: 08/30/18 12:18 Discharged to Home. Impression: Postprocedural hemorrhage and hematoma of a genitourinary system organ or structure following a genitourinary system procedure, Other acute postprocedural pain. - Condition is Stable. - Discharge Instructions: Pain Relief Preoperatively and Postoperatively, Pain Medicine Instructions, [id number]. - Prescriptions for Tylenol- Codeine #4 300-60 mg Oral Tablet - take 1 tablet by ORAL route every 6 hours As needed; 6 tablet. - Medication Reconciliation Form, Thank You Letter, Antibiotic Education, Prescription Opioid Use form. - Follow up: Jorge Gross MD; When: 2 - 3 days; Reason: Re-evaluation by your physician. Signatures: Dispatcher [employer] Mitzy Silva RN RN Anh Paulino RN RN aa5 Rian Milan MD MD gs Peltier, Brian, RN RN bp Corrections: (The following items were deleted from the chart) 12:44 12:18 08/30/2018 12:18 Discharged to Home. Impression: Postprocedural hemorrhage and bp hematoma of a genitourinary system organ or structure following a genitourinary system procedure; Other acute postprocedural pain. Condition is Stable. Forms are Medication Reconciliation Form, Thank You Letter, Antibiotic Education, Prescription Opioid Use. Follow up: Jorge Gross; When: 2 - 3 days; Reason: Re-evaluation by your physician. gs
[2018-08-30 13:02] VITALS: BP 149/94; TEMP 98; O2SAT 98
== END 2018-08-30 12:44 | disposition home or self-care (01) ==
LOC: ER 10:23
DX: N99.820 Postprocedural hemorrhage of a genitourinary system organ or structure following a genitourinary system procedure (principal); N99.840 Postprocedural hematoma of a genitourinary system organ or structure following a genitourinary system procedure; G89.18 Other acute postprocedural pain; F17.210 Nicotine dependence, cigarettes, uncomplicated; J45.909 Unspecified asthma, uncomplicated; E11.9 Type 2 diabetes mellitus without complications; I10 Essential (primary) hypertension
CPT/HCPCS: 36415; 74176; 80048; 81003; 81015; 85025; 99284

== ENCOUNTER 2018-09-03 14:23 | Emergency (ER) | payer SELFPAY ==
--- NOTE | 2018-09-03 15:58 | ER ---
Nurse's Notes [facility] Name: Pamella Farrar Age: 43 yrs Sex: Female : 1975 Arrival Date: 09/03/2018 Time: 14:26 Bed Waiting Private MD: Diagnosis: Presentation: 09/03 14:38 Presenting complaint: Patient states: Diarrhea for 2 days, yesterday I noticed blood in la1 it and today I think I saw "tissue" in it. Transition of care: patient was not received from another setting of care. Onset of symptoms was September 03, 2018. Risk Assessment: Do you want to hurt yourself or someone else? Patient reports no desire to harm self or others. Initial Sepsis Screen: Does the patient meet any 2 criteria? No. Patient's initial sepsis screen is negative. Does the patient have a suspected source of infection? No. Patient's initial sepsis screen is negative. Care prior to arrival: None. 14:38 Method Of Arrival: Ambulatory la1 14:38 Acuity: EVER 3 la1 Historical: - Allergies: 14:38 meperidine HCl; la1 - Home Meds: 15:53 lisinopril 20 mg Oral tab 1 tab once daily [Active]; Metformin Oral [Active]; tw2 - PMHx: 14:38 Asthma; Diabetes - NIDDM; Hypertension; la1 - PSHx: 15:53 Cholecystectomy; Tubal ligation; Small Bowel resection; tw2 - Immunization history:: Adult Immunizations up to date. - Social history:: Smoking status: Patient/guardian denies using tobacco. - Ebola Screening: : No symptoms or risks identified at this time. Screenin:51 Abuse screen: Denies threats or abuse. Nutritional screening: No deficits noted. tw2 Tuberculosis screening: No symptoms or risk factors identified. Fall Risk None identified. Vital Signs: 14:39 BP 165 / 96; Pulse 95; Resp 16; Temp 97.7; Pulse Ox 98% on R/A; Weight 70.31 kg; Height la1 5 ft. 3 in. (160.02 cm); 14:39 Body Mass Index 27.46 (70.31 kg, 160.02 cm) la1 ED Course: 14:26 Patient arrived in ED. as 14:39 Triage completed. la1 14:39 Arm band placed on left wrist. la1 15:51 Pricila Cisneros, RN is Primary Nurse. tw2 15:52 David Silveira PA is PHCP. cp 15:52 Omar Briseno MD is Attending Physician. cp 15:52 Bed in low position. Call light in reach. tw2 Administered Medications: No medications were administered Outcome: 15:58 Patient left the ED. la1 Signatures: Maria Elena Valadez Lee RN RN la1 David Silveira PA PA cp Pricila Cisneros, RN RN tw2
[2018-09-03 16:02] VITALS: BP 165/96; TEMP 97.7; O2SAT 98
== END 2018-09-03 15:58 | disposition left against medical advice (07) ==
LOC: ER 14:23
DX: Z02.9 Encounter for administrative examinations, unspecified (principal)
CPT/HCPCS: 99281